=== PATIENT | male | born 1995 | race Caucasian/White ===

== ENCOUNTER 2016-11-15 17:04 | Emergency (ER) | payer BC ==
[~2016-11-15] VITALS: Ht 188 cm; Wt 75.5 kg
[~2016-11-15 17:04] MED LIST: LACO200T PO; LEVE500T13 PO; LISI-461 PO; ONDA4TAB10 SL; OXYC1TAB3 PO; PHEN50CH PO; PRLSR20 PO; VANC1INJ10 IV
[2016-11-15 17:09] VITALS: Ht 188 cm; Wt 75.5 kg
[2016-11-15] MEDS ORDERED: SODIUM CHLORIDE 0.9% 1000ML 300 ML IV STA (18:03)
[2016-11-15] MEDS ORDERED: ONDANSETRON INJ 2 MG/ML 2 ML VIAL IV STA ×2 (18:03→18:18)
[2016-11-15 18:45] LABS: BASO % 0.1 %; BASO ABS # 0.01 K/uL (0-0.2); COMPLETE YES; EOS % 0.5 %; HEMATOCRIT 45.4 % (42-52); IG% 0.1 %; LYMPH % 10.7 %; LYMPH ABS # 1.18 K/uL (1.2-3.4); MEAN CELL VOLUME 85.2 fL (80-100); MEAN CORPUSCULAR HEMOGLOBIN 31.1 pg (25-34); MEAN CORPUSCULAR HGB CONC 36.6 g/dl (32-36); NEUT % 83.6 %; PLATELET COUNT 205 K/uL (130-400); RED BLOOD COUNT 5.33 M/uL (4.7-6.1); WHITE BLOOD COUNT 11.06 K/uL (4.8-10.8)
[2016-11-15 19:02] LABS: BUN/CREATININE RATIO 18.8 (10-20); CALCIUM 9.8 mg/dl (8.5-10.1); CREATININE 0.9 mg/dl (0.60-1.40); POTASSIUM 3.9 mmol/L (3.5-5.1)
[2016-11-15 19:05] LABS: ALB/GLOB RATIO 1.3 (0.9-2)
[2016-11-15] MEDS ORDERED: SODIUM CHLORIDE 0.9% 1000ML 1,000 ML IV STA (19:18)
[2016-11-15] MEDS ORDERED: ONDANSETRON HOME PACK 4MG OD TAB PO ONE (21:15)
[2016-11-15 21:33] VITALS: BP 115/77; PULSE 71; TEMP 37; O2SAT 100
--- NOTE | 2016-11-16 01:47 | EMERGENCY ROOM VISIT NOTE ---
History Report prepared by Ritu: Espinoza Thrasher Under the Supervision of: Dr. Fabian Ny M.D. First contact with patient: 18:04 Chief Complaint: GI ASSESSMENT Stated Complaint: VOMITING,DIARRHEA,SEVERE HEADACHE Nursing Triage Summary: Pt c/o n/v/d since 0400 this morning headache since 0900 Hx brain surgery in May 2016 History of Present Illness The patient is a 21 year old male who presents to the Emergency Room with complaints of intermittent episodes of vomiting and diarrhea beginning this morning. He states that his vomiting began about 14 hours ago, and he began having episodes of diarrhea shortly afterwards. He estimates that he has had about 6-8 episodes of vomiting today. The patient has associated headache and abdominal soreness. He feels that his abdomen is sore from vomiting. Pt denies LOC, fevers, chills, diaphoresis, visual changes, neck pain, chest pain, breathing difficulties, back pain, melena, hematochezia, urinary symptoms, numbness, weakness, lymphadenopathy, rash, or other complaints. He states that he has not been eating or drinking much lately. The patient notes that he was found to have a benign brain tumor last march which was removed surgically. He also notes that he has a had an e. coli infection of the surgical site following the surgery, and that he currently is missing part of his skull. He states that he has not had many problems with the surgical site since. The patient states that his current headache is primarily located around the previous surgical site. Source of History: patient Onset: 14 hours ago Symptom Intensity: 6-8 episodes of vomiting Quality: other (vomiting and diarrhea) Timing: intermittent, other (episodes) Associated Symptoms: + abdominal pain (mild), + headache (around previous surgical site) Review of Systems See HPI for pertinent positives and negatives. A total of ten systems were reviewed and were otherwise negative. Past Medical & Surgical Medical Problems: (1) Brain tumor (benign) (2) E. coli infection (3) Post-operative infection (4) Seizure (5) Stomach ulcer Family History Unobtainable due to AMS Social History Smoking Status: Current Every Day Smoker Marital Status: in relationship Housing Status: lives with significant other Occupation Status: employed Current/Historical Medications Scheduled Levetiracetam (Keppra), 3 TAB PO BID Lisinopril (Zestril), 10 MG PO DAILY Omeprazole (Prilosec), 20 MG PO DAILY Ondasetron Odt (Zofran Odt), 4 MG SL Q6H Phenytoin (Dilantin Chewable), 150 MG PO Q8 Scheduled PRN Oxycodone Ir (Roxicodone Ir), 5 MG PO Q4H PRN for Severe Pain Allergies Uncoded Allergies: EUDORA (Allergy, Intermediate, THROAT SWELLING, 11/15/16) Physical Exam Vital Signs Date Time Temp Pulse Resp B/P Pulse Ox O2 Delivery O2 Flow Rate FiO2 11/15/16 21:33 37.0 71 18 115/77 100 11/15/16 21:32 71 18 115/77 100 Room Air 11/15/16 20:52 77 18 112/71 100 Room Air 11/15/16 19:13 77 18 115/71 100 Room Air 11/15/16 17:09 37.0 104 18 120/64 95 Room Air Physical Exam GENERAL: Awake, alert, mildly uncomfortable appearing, no acute distress HEAD: Atraumatic. No edema. Surgical defect of the right frontal skull without erythema, tenderness, or skin abnormality. EYES: Normal conjunctiva. Sclera non-icteric. PERRL. EOMI. OROPHARYNX: Lips, tongue, and mucosa unremarkable. No erythema or exudate. NECK: Supple. No nuchal rigidity. FROM. No adenopathy. RESPIRATORY: CTA bilaterally. No wheezes rales or rhonchi. CARDIAC: Borderline tachycardic rate, normal rhythm. ABDOMEN: Soft, non distended. Mild lower abdominal tenderness to palpation. No rebound or guarding. MUSCULOSKELETAL: Atraumatic. No edema. NEURO: Normal sensorium. SKIN: No rash or jaundice noted Medical Decision & Procedures Laboratory Results 11/15/16 18:30 Red Blood Count 5.33, Mean Corpuscular Volume 85.2, Mean Corpuscular Hemoglobin 31.1, Mean Corpuscular Hemoglobin Concent 36.6, Mean Platelet Volume 11.0, Neutrophils (%) (Auto) 83.6, Lymphocytes (%) (Auto) 10.7, Monocytes (%) (Auto) 5.0, Eosinophils (%) (Auto) 0.5, Basophils (%) (Auto) 0.1, Neutrophils # (Auto) 9.25, Lymphocytes # (Auto) 1.18, Monocytes # (Auto) 0.55, Eosinophils # (Auto) 0.06, Basophils # (Auto) 0.01 11/15/16 18:30 Test 11/15/16 18:00 11/15/16 18:30 Influenza Type A Antigen Neg for Influ A (NEG) Influenza Type B Antigen Neg for Influ B (NEG) White Blood Count 11.06 K/uL (4.8-10.8) Red Blood Count 5.33 M/uL (4.7-6.1) Hemoglobin 16.6 g/dL (14.0-18.0) Hematocrit 45.4 % (42-52) Mean Corpuscular Volume 85.2 fL (80-100) Mean Corpuscular Hemoglobin 31.1 pg (25-34) Mean Corpuscular Hemoglobin Concent 36.6 g/dl (32-36) Platelet Count 205 K/uL (130-400) Mean Platelet Volume 11.0 fL (7.4-10.4) Neutrophils (%) (Auto) 83.6 % Lymphocytes (%) (Auto) 10.7 % Monocytes (%) (Auto) 5.0 % Eosinophils (%) (Auto) 0.5 % Basophils (%) (Auto) 0.1 % Neutrophils # (Auto) 9.25 K/uL (1.4-6.5) Lymphocytes # (Auto) 1.18 K/uL (1.2-3.4) Monocytes # (Auto) 0.55 K/uL (0.11-0.59) Eosinophils # (Auto) 0.06 K/uL (0-0.5) Basophils # (Auto) 0.01 K/uL (0-0.2) RDW Standard Deviation 39.0 fL (36.4-46.3) RDW Coefficient of Variation 12.6 % (11.5-14.5) Immature Granulocyte % (Auto) 0.1 % Immature Granulocyte # (Auto) 0.01 K/uL (0.00-0.02) Anion Gap 12.0 mmol/L (3-11) Est Creatinine Clear Calc Drug Dose 137.5 ml/min Estimated GFR () 140.0 Estimated GFR (Non- 120.8 BUN/Creatinine Ratio 18.8 (10-20) Calcium Level 9.8 mg/dl (8.5-10.1) Total Bilirubin 0.7 mg/dl (0.2-1) Aspartate Amino Transf (AST/SGOT) 16 U/L (15-37) Alanine Aminotransferase (ALT/SGPT) 16 U/L (12-78) Alkaline Phosphatase 110 U/L (45-117) Total Protein 8.1 gm/dl (6.4-8.2) Albumin 4.6 gm/dl (3.4-5.0) Globulin 3.5 gm/dl (2.5-4.0) Albumin/Globulin Ratio 1.3 (0.9-2) Lipase 89 U/L (73-393) Laboratory results reviewed by me Medications Administered Medications (Trade) Dose Ordered Sig/Mike Route Start Time Stop Time Status Last Admin Dose Admin Sodium Chloride (Nss 1000ml) 300 ml @ 999 mls/hr Q19M STAT IV 11/15/16 18:03 11/15/16 18:21 DC 11/15/16 18:48 999 MLS/HR Ondansetron HCl 4 mg 4 mg NOW STAT IV 11/15/16 18:18 11/15/16 18:19 DC 11/15/16 18:49 4 MG Sodium Chloride (Nss 1000ml) 1,000 ml @ 999 mls/hr Q1H1M STAT IV 11/15/16 19:18 11/15/16 20:18 DC 11/15/16 19:51 999 MLS/HR Ondansetron HCl (ZOFRAN ODT 4MG Home Pack) 1 homepack UD ONCE PO 11/15/16 21:15 11/15/16 21:16 DC 11/15/16 21:21 1 HOMEPACK ED Course 180: Ordered Zofran 4 mg IV, NSS 1000 mL @ 999 mL/hr IV. 1812: The patient was evaluated in room B2. A complete history and physical exam was performed. 1817: Ordered Zofran 4 mg IV. 1917: Ordered NSS 1000 mL @ 999 mL/hr IV. 2012: I reassessed the patient. He is feeling much better. He tolerated Gatorade without difficulty. 2114: Ordered Zofran Odt 4 mg home pack PO. 2119: I reevaluated the patient. Discussed results and discharge instructions: he verbalized understanding and agreement. The patient is ready for discharge. Medical Decision Triage Nursing notes reviewed. The patient's presentation and history were concerning for nausea, vomiting, and diarrhea. Patient also noted a headache. Etiologies such as gastroenteritis, Dehydration, complication of recent brain surgery, food borne illness, infections, obstruction, pancreatitis, appendicitis , diverticulitis, inflammatory bowel disease, GI bleed, biliary pathology, toxicologic as well as others were entertained. Patient was evaluated. Clinically he looked like he was doing well. His stomach was upset. He had an IV established. Blood work was obtained. The patient was given 2 L of normal saline as well as IV Zofran. The patient has slight leukocytosis on CBC, very slight. Chemistry panel, LFTs, and lipase were unremarkable. Flu testing was negative. Reassessment patient felt significantly better. All of his symptoms resolved. His headache resolved. I suspect that he was dehydrated from his vomiting and diarrhea. There is no indication to suggest recurrence of his post surgical infection. Patient was able to tolerate oral fluids and crackers. I discussed conservative management with him and he was very much in agreement. If he worsens in any way she will come back to the Emergency Room for reevaluation. By the evaluation outlined above other emergent etiologies such as those listed in the differential, as well as others, were deemed relatively unlikely. The patient and her friend were informed about the findings as listed above. All questions were answered and they were pleased with the treatment. Return instructions were outlined and the patient was discharged in stable condition. The patient was referred to his PCP for follow-up for a recheck of the current condition. The chart was completed utilizing [employer] Speech voice recognition software. Grammatical errors, random word insertions, pronoun errors, and incomplete sentences are an occasional consequence of this system due to software limitations, ambient noise, and hardware issues. Any formal questions or concerns about the content, text, or information contained within the body of this dictation should be directly addressed to the physician for clarification. Impression Primary Impression: Nausea vomiting and diarrhea Scribe Attestation The scribe's documentation has been prepared under my direction and personally reviewed by me in its entirety. I confirm that the note above accurately reflects all work, treatment, procedures, and medical decision making performed by me. Departure Information Dispostion Home / Self-Care Referrals No Doctor, Assigned (PCP) Patient Instructions A Signature Page, My [facility]
== END 2016-11-15 21:34 | disposition home or self-care (01) ==
LOC: C.EDB 17:04
DX: R11.2 Nausea with vomiting, unspecified (principal); R19.7 Diarrhea, unspecified; F17.200 Nicotine dependence, unspecified, uncomplicated

== ENCOUNTER 2017-01-07 04:09 | Emergency (ER) | payer BC, OTHER ==
[~2017-01-07] VITALS: Ht 188 cm; Wt 79.1 kg
[~2017-01-07 04:09] MED LIST changes: -LACO200T PO; +ONDANSETRON INJ 2 MG/ML 2 ML VIAL ONE; -VANC1INJ10 IV
[2017-01-07 04:16] VITALS: TEMP 36.5; Ht 188 cm; Wt 79.1 kg
[2017-01-07 04:28] VITALS: O2SAT 97
[2017-01-07] MEDS ORDERED: SODIUM CHLORIDE 0.9% 1000ML 1,000 ML IV STA (04:32)
[2017-01-07 04:56] LABS: BASO % 0.4 %; BASO ABS # 0.02 K/uL (0-0.2); COMPLETE YES; EOS % 3.7 %; HEMATOCRIT 40.3 % (42-52); IG% 0.9 %; LYMPH ABS # 1.99 K/uL (1.2-3.4); MEAN CELL VOLUME 85.9 fL (80-100); MEAN CORPUSCULAR HEMOGLOBIN 30.3 pg (25-34); MEAN CORPUSCULAR HGB CONC 35.2 g/dl (32-36); MEAN PLATELET VOLUME 10.9 fL (7.4-10.4); MONO % 7.7 %; NEUT % 52.3 %; PLATELET COUNT 166 K/uL (130-400); RED BLOOD COUNT 4.69 M/uL (4.7-6.1); WHITE BLOOD COUNT 5.69 K/uL (4.8-10.8)
[2017-01-07 05:07] LABS: BUN/CREATININE RATIO 9.4 (10-20); POTASSIUM 3.8 mmol/L (3.5-5.1)
[2017-01-07 05:10] LABS: PROTHROMBIN TIME (PATIENT) 10.4 SECONDS (9.0-12.0)
[2017-01-07 05:18] LABS: PHOSPHORUS 2.3 mg/dl (2.5-4.9); THYROID STIMULATING HORMONE 3.44 uIu/ml (0.300-4.500)
[2017-01-07] MEDS ORDERED: PHENYTOIN SODIUM ER 100 MG CAP PO STA ×3 (05:35→08:28)
[2017-01-07] MEDS ORDERED: ACETAMINOPHEN 500 MG TAB PO STA (05:35)
--- NOTE | 2017-01-07 07:17 | DIAGNOSTIC IMAGING REPORT ---
HEAD CT NONCONTRAST CT DOSE: 614.27 mGy.cm HISTORY: seizure TECHNIQUE: Multiaxial CT images of the head were performed without the use of intravenous contrast. Automated exposure control was utilized for this study. Comparison: Head CT 07/11/2016. Findings: The paranasal sinuses and mastoid air cells are clear. There is been interval placement of a bone graft at the right frontal craniotomy defect. There are overlying scalp jesus. Right frontal lobe encephalomalacia is again noted. Minimal right frontal dural/subdural thickening has improved. No mass, hematoma, midline shift, acute infarct. Impression: Right frontal postoperative changes and encephalomalacia as described above. Minimal right frontal dural/subdural thickening has improved. No acute intracranial abnormality. Electronically signed by: Juancarlos Koch M.D. 01/07/2017 7:16 AM Dictated Date/Time: 01/07/2017 7:12 AM
[2017-01-07] MEDS ORDERED: LEVETIRACETAM 500 MG TAB PO STA (07:34)
[2017-01-07] MEDS ORDERED: PHENYTOIN SODIUM ER 100 MG CAP PO ONE (07:45)
--- NOTE | 2017-01-07 08:34 | EMERGENCY ROOM VISIT NOTE ---
History Report prepared by [place]dorita: Nisa Merritt Under the Supervision of: Dr. Fabian Ny M.D. First contact with patient: 04:32 Chief Complaint: SEIZURE Stated Complaint: SEIZURE Nursing Triage Summary: pt arrives ALS from home post seizure. pt had brain tumor removed in June 2016 at [facility] post first ever seizure. has been on seizure medications since. had one seizure post surgery due to illness. pt has not been taking medications as ordered. pt has pill bottles for Keppra, Dilantin, and Lisinopril that were filled 07/2016. Dilantin bottle still 1/2 full. Keppra bottle has 4 pills. Lisinopril bottle has 2 pills. pt had surgery 2 weeks ago to replace bone removed during tumor surgery. jesus intact and well approximated. pt was sleeping and woke girlfriend approx 0310 with grand mal seizure activity lasting approx 1 minute. pt arrives awake, alert, upon arrival. pt did vomit upon arrival to ED and was medicated with 4mg IV Zofran per protocol. pt reports pain in back 10 post seizure. denies other pain. History of Present Illness The patient is a 21 year old male who presents to the Emergency Room to be evaluated status post a seizure that occurred this morning. The patient's significant other woke up to him shaking in bed and foaming from the mouth. The shaking lasted about a minute, but he was not acting himself afterwards. The patient remembers waking up in the ambulance with right lower back pain. He did not have any back pain prior to the seizure. The patient has a history of seizures that began this past March. He was put on Dilantin and Keppra but states that he has not been compliant with the medications since May or June. He was found to have a brain tumor which was removed in [place] in June. His father states that he had an infection in his brain following the surgery and was in a coma for 12 days, but since rehabilitation, he has been doing very well. One week ago, he had a cranioplasty by Dr. Morejon in [place] and was discharged the following day. Pt denies headache, fevers, chills, diaphoresis, visual changes, neck pain, chest pain, breathing difficulties, nausea, vomiting , abdominal pain, melena, hematochezia, urinary symptoms, numbness, weakness, lymphadenopathy, rash, or other complaints. Source of History: patient, parent, spouse/significant other Onset: this morning Position: other (global) Quality: other (seizure) Timing: other (episode) Associated Symptoms: + back pain (right lower) Review of Systems See HPI for pertinent positives and negatives. A total of ten systems were reviewed and were otherwise negative. Past Medical & Surgical Medical Problems: (1) Brain tumor (benign) (2) E. coli infection (3) Post-operative infection (4) Seizure (5) Stomach ulcer Family History No pertinent family history stated. Social History Smoking Status: Current Every Day Smoker Marital Status: in relationship Housing Status: lives with significant other Occupation Status: employed Current/Historical Medications Scheduled Levetiracetam (Keppra), 1,500 MG PO BID Lisinopril (Zestril), 10 MG PO DAILY Phenytoin (Dilantin Chewable), 150 MG PO Q8 Allergies Uncoded Allergies: CONFLUENCE (Allergy, Intermediate, THROAT SWELLING, 11/15/16) Physical Exam Vital Signs Date Time Temp Pulse Resp B/P Pulse Ox O2 Delivery O2 Flow Rate FiO2 01/07/17 07:55 81 15 110/56 99 Room Air 01/07/17 07:51 62 01/07/17 07:00 69 16 123/67 99 Room Air 01/07/17 06:30 67 15 126/72 99 Room Air 01/07/17 06:00 66 17 129/75 100 Room Air 01/07/17 05:30 67 18 114/62 100 Room Air 01/07/17 04:33 88 01/07/17 04:28 97 Room Air 01/07/17 04:16 36.5 86 18 150/78 97 Room Air Physical Exam GENERAL: Awake, alert, well-appearing, in no distress HENT: Normocephalic. Surgical incision on the right scalp is clean, dry, and intact. Oropharynx unremarkable. EYES: Normal conjunctiva. Sclera non-icteric. PERRLA. EOMI. NECK: Supple. No nuchal rigidity. FROM. No JVD. RESPIRATORY: Clear to auscultation. CARDIAC: Regular rate, normal rhythm. Extremities warm and well perfused. Pulses equal. ABDOMEN: Soft, non-distended. No tenderness to palpation. No rebound or guarding. No masses. RECTAL: Deferred. MUSCULOSKELETAL: Chest examination reveals no tenderness. The back is symmetrical on inspection without obvious abnormality. There is no CVA tenderness to palpation. No joint edema. LOWER EXTREMITIES: Calves are equal size bilaterally and non-tender. No edema. No discoloration. NEURO: Normal sensorium. No sensory or motor deficits noted. No drift. SKIN: No rash or jaundice noted. Medical Decision & Procedures ER Provider Diagnostic Interpretation: Radiology results as stated below per my review and radiologist interpretation. CT HEAD: Compared to 07/11/2016. Right frontal postoperative changes and encephalomalacia. Subdural density/ thickening in this region may be chronic. Otherwise, no evidence of intracranial hemorrhage or skull fracture. Laboratory Results 01/07/17 04:33 Red Blood Count 4.69, Mean Corpuscular Volume 85.9, Mean Corpuscular Hemoglobin 30.3, Mean Corpuscular Hemoglobin Concent 35.2, Mean Platelet Volume 10.9, Neutrophils (%) (Auto) 52.3, Lymphocytes (%) (Auto) 35.0, Monocytes (%) (Auto) 7.7, Eosinophils (%) (Auto) 3.7, Basophils (%) (Auto) 0.4, Neutrophils # (Auto) 2.98, Lymphocytes # (Auto) 1.99, Monocytes # (Auto) 0.44, Eosinophils # (Auto) 0.21, Basophils # (Auto) 0.02 01/07/17 04:33 Test 01/07/17 04:33 White Blood Count 5.69 K/uL (4.8-10.8) Red Blood Count 4.69 M/uL (4.7-6.1) Hemoglobin 14.2 g/dL (14.0-18.0) Hematocrit 40.3 % (42-52) Mean Corpuscular Volume 85.9 fL (80-100) Mean Corpuscular Hemoglobin 30.3 pg (25-34) Mean Corpuscular Hemoglobin Concent 35.2 g/dl (32-36) Platelet Count 166 K/uL (130-400) Mean Platelet Volume 10.9 fL (7.4-10.4) Neutrophils (%) (Auto) 52.3 % Lymphocytes (%) (Auto) 35.0 % Monocytes (%) (Auto) 7.7 % Eosinophils (%) (Auto) 3.7 % Basophils (%) (Auto) 0.4 % Neutrophils # (Auto) 2.98 K/uL (1.4-6.5) Lymphocytes # (Auto) 1.99 K/uL (1.2-3.4) Monocytes # (Auto) 0.44 K/uL (0.11-0.59) Eosinophils # (Auto) 0.21 K/uL (0-0.5) Basophils # (Auto) 0.02 K/uL (0-0.2) RDW Standard Deviation 41.3 fL (36.4-46.3) RDW Coefficient of Variation 13.3 % (11.5-14.5) Immature Granulocyte % (Auto) 0.9 % Immature Granulocyte # (Auto) 0.05 K/uL (0.00-0.02) Prothrombin Time 10.4 SECONDS (9.0-12.0) Prothromb Time International Ratio 1.0 (0.9-1.1) Activated Partial Thromboplast Time 24.7 SECONDS (21.0-31.0) Partial Thromboplastin Ratio 1.0 Anion Gap 7.0 mmol/L (3-11) Est Creatinine Clear Calc Drug Dose 129.6 ml/min Estimated GFR () 123.3 Estimated GFR (Non- 106.4 BUN/Creatinine Ratio 9.4 (10-20) Calcium Level 9.0 mg/dl (8.5-10.1) Phosphorus Level 2.3 mg/dl (2.5-4.9) Magnesium Level 2.0 mg/dl (1.8-2.4) Thyroid Stimulating Hormone (TSH) 3.440 uIu/ml (0.300-4.500) Phenytoin (Dilantin) Level < 0.4 mcg/mL (10-20) Laboratory results reviewed by me Medications Administered Medications (Trade) Dose Ordered Sig/Mike Route Start Time Stop Time Status Last Admin Dose Admin Ondansetron HCl 4 mg 4 mg STK-MED ONCE .ROUTE 01/07/17 04:09 01/07/17 04:12 DC 01/07/17 04:21 4 MG Sodium Chloride (Nss 1000ml) 1,000 ml @ 999 mls/hr Q1H1M STAT IV 01/07/17 04:32 01/07/17 05:32 DC 01/07/17 04:57 999 MLS/HR Acetaminophen (Tylenol Tab) 1,000 mg NOW STAT PO 01/07/17 05:35 01/07/17 05:38 DC 01/07/17 05:46 1,000 MG Phenytoin Sodium (Dilantin Er Cap) 400 mg NOW STAT PO 01/07/17 05:35 01/07/17 05:38 DC 01/07/17 05:46 400 MG Levetiracetam (Keppra Tab) 1,500 mg NOW STAT PO 01/07/17 07:34 01/07/17 07:35 DC 01/07/17 07:53 1,500 MG Phenytoin Sodium (Dilantin Er Cap) 300 mg NOW ONCE PO 01/07/17 07:45 01/07/17 07:46 DC 01/07/17 07:53 300 MG ED Course 0432: Ordered NSS 1000 ml @ 999 mls/hr IV. 0456: The patient was evaluated in room A3. A complete history and physical exam was performed. 0535: Ordered Dilantin Er Cap 400 mg POI, Tylenol Tab 1000 mg PO. 0625: I reassessed the patient and updated him on results so far. He was resting comfortably. 0718: Ordered Dilantin Er Cap 300 mg PO. 0730: I discussed the case with Dr. Aurelio Bautista [facility]. She said to give him 1500 mg Keppra in the ED and resume his normal Keppra dose today. He can resume his normal Dilantin dose tomorrow. 0740: The patient was signed out to Dr. Mendieta at the change of shift. Medical Decision Prior records/ancillary studies reviewed. Patient placed in seizure precautions immediately upon arrival. Nursing notes reviewed and agree them. Additional history obtained from family The patient's history was concerning for a possible seizure. Differential diagnosis: Etiologies such as breakthrough seizure, infection, hypoglycemia, electrolyte abnormalities, cardiac sources, intracerebral event, trauma, toxicologic, neurologic, as well as others were entertained. Physical examination: As above. No signs of trauma. ER treatment provided: IV hydration with normal saline and Zofran. Oral Tylenol On reassessment the patient felt better. Oral Dilantin load 400/300/300 mg Oral Keppra 1500 mg Diagnostics interpretation by me: The labs revealed an unremarkable CBC and chemistry panel. Dilantin level negative consistent with his noncompliance. Imaging studies: Head CT as above Consultation: A consultation was placed with the neurologist, Dr. Lizbeth Carey. The case was discussed and diagnostics were reviewed. She agreed with the oral Dilantin load and recommended initiating the Keppra again and his standard dosing. The patient will resume his standard Dilantin dosing tomorrow and continue Keppra. The office will follow-up with the patient. Patient and family felt comfortable with this plan. The patient has a history of seizures and experienced another episode. By the evaluation outlined above emergent etiologies such as infection, hypoglycemia, electrolyte abnormalities, cardiac sources, intracerebral event, toxicologic, neurologic,as well as others were deemed relatively unlikely. The patient was counseled not to drive until cleared in follow-up. The patient and family were informed about the findings as listed above. All questions were answered and they were pleased with the treatment. Return instructions were outlined and the patient was discharged in stable condition. Outpatient prescription management: Continue Keppra Continue Dilantin Referral: The patient was referred to neurology and back to his primary care physician for follow-up in 2 to 3 days for a recheck of the current condition. The chart was completed utilizing [employer] Speech voice recognition software. Grammatical errors, random word insertions, pronoun errors, and incomplete sentences are an occasional consequence of this system due to software limitations, ambient noise, and hardware issues. Any formal questions or concerns about the content, text, or information contained within the body of this dictation should be directly addressed to the physician for clarification. Consults Time Called: 719 Consulting Physician: Dr. Aurelio Ramirez Neurology Returned Call: 0730 I discussed the case with her. She said to give him 1500 mg Keppra in the ED and resume his normal Keppra dose today. He can resume his normal Dilantin dose tomorrow. Impression Primary Impression: Seizure Scribe Attestation The scribe's documentation has been prepared under my direction and personally reviewed by me in its entirety. I confirm that the note above accurately reflects all work, treatment, procedures, and medical decision making performed by me. Departure Information Dispostion Home / Self-Care Referrals Sage Vega M.D.([facility]) (PCP) Patient Instructions My [facility] Additional Instructions Restart the Dilantin at 150 mg 3 times daily as previously prescribed tomorrow. You were given a loading dose in the Emergency Room. Restart the Keppra as previously prescribed 1500 mg twice daily. Take your next dose this evening and then twice daily starting tomorrow. First dose was given in the Emergency Room. Follow-up with neurology and neurosurgery as discussed. You should hear from the neurology office, Dr. Lizbeth Carey, either today or possibly Tuesday. If you do not hear from the office by Tuesday call them at the number listed below. Acetaminophen(Tylenol) may be used for fever or pain. Use 1000mg every six hours as needed. Avoid using more than 4000mg in a 24 hour period. Rest and drink plenty of fluids as tolerated. Continue current medications. No driving or performing dangerous activities until cleared by neurology and neurosurgery. Return to the ER for passing out, chest pain, headache, persistent vomiting, fevers, abdominal pain, chest pains, difficulty breathing, black or bloody stools, worsening of your condition, or as needed. Follow up with your primary physician in 2-3 days for a recheck of your current condition
[2017-01-07 09:40] VITALS: BP 114/49; PULSE 74; O2SAT 98
== END 2017-01-07 09:41 | disposition home or self-care (01) ==
LOC: EDBD 04:09 → C.EDA 04:11
DX: R56.9 Unspecified convulsions (principal); Z86.011 Personal history of benign neoplasm of the brain; F17.210 Nicotine dependence, cigarettes, uncomplicated; Z79.899 Other long term (current) drug therapy

== ENCOUNTER 2017-08-05 09:36 | Emergency (ER) | payer BC, OTHER ==
[~2017-08-05] VITALS: Ht 188 cm; Wt 70.5 kg
[~2017-08-05 09:36] MED LIST changes: -BUPR150T47 PO; -DLN/100 PO
[2017-08-05 09:46] VITALS: TEMP 36.7
[2017-08-05] MEDS ORDERED: SODIUM CHLORIDE 0.9% 1000ML 1,000 ML IV STA (10:01)
[2017-08-05] MEDS ORDERED: DLN/100 PO (10:23)
[2017-08-05 10:24] VITALS: Ht 188 cm; Wt 70.5 kg
[2017-08-05] MEDS ORDERED: BUPR150T47 PO (10:24)
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
[2017-08-05 10:52] VITALS: O2SAT 100
[2017-08-05 11:04] LABS: ALT/SGPT 19 U/L (12-78); AST/SGOT 12 U/L (15-37); BLOOD UREA NITROGEN 13 mg/dl (7-18); BUN/CREATININE RATIO 14.3 (10-20); CALCIUM 8.9 mg/dl (8.5-10.1); CARBON DIOXIDE 27 mmol/L (21-32); CHLORIDE 111 mmol/L (98-107); CREATININE 0.89 mg/dl (0.60-1.40); GLUCOSE 107 mg/dl (70-99); MAGNESIUM 2.1 mg/dl (1.8-2.4); POTASSIUM 4.3 mmol/L (3.5-5.1); SODIUM 142 mmol/L (136-145)
[2017-08-05 11:14] LABS: ALKALINE PHOSPHATASE 96 U/L (45-117)
[2017-08-05 12:59] LABS: URINE APPEARANCE CLEAR (CLEAR); URINE BILIRUBIN NEG (NEG); URINE COLOR YELLOW; URINE NITRITE NEG (NEG); URINE PH 6.5 (4.5-7.5); URINE SPECIFIC GRAVITY 1.022 (1.000-1.030); UROBILINOGEN NEG (NEG)
[2017-08-05 13:00] LABS: MANUAL MICROSCOPIC REQUIRED? NO; REVIEW REQ? NO
[2017-08-05 13:26] LABS: BENZODIAZEPINE, URINE NEG (NEG); COCAINE,URINE NEG (NEG); PHENCYCLIDINE, URINE NEG (NEG)
[2017-08-05] MEDS ORDERED: PHENYTOIN SODIUM ER 100 MG CAP PO STA (13:48)
[2017-08-05 14:04] LABS: BASO % 0.2 %; BASO ABS # 0.02 K/uL (0-0.2); COMPLETE YES; EOS % 0.3 %; HEMATOCRIT 38.9 % (42-52); IG% 0.3 %; LYMPH % 13.5 %; LYMPH ABS # 1.33 K/uL (1.2-3.4); MEAN CORPUSCULAR HEMOGLOBIN 31.1 pg (25-34); MEAN PLATELET VOLUME 10.9 fL (7.4-10.4); MONO % 4.9 %; NEUT % 80.8 %; PLATELET COUNT 172 K/uL (130-400); RED BLOOD COUNT 4.37 M/uL (4.7-6.1); WHITE BLOOD COUNT 9.88 K/uL (4.8-10.8)
--- NOTE | 2017-08-05 14:04 | Pharmacy Progress Note ---
ED Pharmacist Counseling Note Date of Service: Aug 05, 2017. Situation * Patient with seizure disorder (on phenytoin and levetiracetam) also prescribed bupropion for smoking cessation Background * Bupropion decreases seizure threshold and is therefore contraindicated in patients with pre-existing seizure condition * Abrupt discontinuation of bupropion may cause adverse reactions * Discontinuation symptoms are uncommon and are usually mild * Possible symptoms: anxiety, headache, insomnia, irritability, myalgias Assessment * Risks of abrupt discontinuation of bupropion likely less than benefit Plan * Discussed w Dr. Ny, agreed with stopping bupropion now (no taper) * Counseled patient on possible adverse reactions (listed above). Patient notes he ran out of bupropion a couple months ago and did not experience significant adverse reactions. Time spent with patient: 5 minutes
[2017-08-05 14:33] VITALS: BP 128/81; PULSE 78; O2SAT 98
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
== END 2017-08-05 14:33 | disposition home or self-care (01) ==
LOC: EDBD 09:36 → C.EDA 09:42
DX: R56.9 Unspecified convulsions (principal); Z91.19 Patient's noncompliance with other medical treatment and regimen; F12.10 Cannabis abuse, uncomplicated; F17.200 Nicotine dependence, unspecified, uncomplicated; Z79.899 Other long term (current) drug therapy

== ENCOUNTER → 2017-08-05 | Outpatient (CLI) | payer OTHER ==
[~2017-08-05] MED LIST changes: +BUPR150T47 PO; +DLN/100 PO; -ONDA4TAB10 SL; -ONDANSETRON INJ 2 MG/ML 2 ML VIAL ONE; -OXYC1TAB3 PO; -PRLSR20 PO
== END | disposition home or self-care (01) ==
LOC: C.LAB 10:00
DX: Z02.83 Encounter for blood-alcohol and blood-drug test (principal)

== ENCOUNTER → 2017-12-26 | Outpatient (CLI) | payer OTHER ==
[~2017-12-26] MED LIST changes: +BUPR150T47 PO; +DLN/100 PO; -LISI-461 PO; -PHEN50CH PO
--- NOTE | 2017-12-26 17:45 | DIAGNOSTIC IMAGING REPORT ---
SCOLIOSIS 2 VIEW (AP LAT) CLINICAL HISTORY: SCOLIOSIS COMPARISON STUDY: None FINDINGS: Slight scoliosis of the thoracolumbar spine. Maximum angulation of 4 degrees midthoracic spine. Minimal angulation of 1 degree of the lumbar spine. IMPRESSION: Minimal scoliosis of the thoracolumbar spine with angles of 4 and 1 degrees respectively The above report was generated using voice recognition software. It may contain grammatical, syntax or spelling errors. Electronically signed by: Dino Ambrosio M.D. 12/26/2017 5:43 PM Dictated Date/Time: 12/26/2017 5:41 PM
== END | disposition home or self-care (01) ==
LOC: C.RAD 16:38
PROVIDERS: ATTEND Chiropractor
DX: M41.9 Scoliosis, unspecified (principal)